=== PATIENT | female | born 1965 | race African-American/Black ===

== ENCOUNTER 2019-05-08 18:01 | Emergency (ER) | payer OTHER ==
[~2019-05-08] VITALS: Ht 165.1 cm; Wt 76.2 kg
[2019-05-08] MEDS ORDERED: SIMVASTATIN20 MG ORAL (18:21)
[2019-05-08] MEDS ORDERED: HYDROCHLOROTHIA50 MG ORAL (18:21)
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
[2019-05-08 18:36] VITALS: BP 156/92
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
[2019-05-08] MEDS ORDERED: ROBAXIN500 MG PO (18:45)
[2019-05-08] MEDS ORDERED: NAPROXEN500 M2 ORAL (18:45)
--- NOTE | 2019-05-08 18:50 | NUR ---
ED Nurse Note: PT LAYING PEACEFULLY IN BED IN NAD. AOX4. PRESCIRPTIONS AND DISCHARGE PAPERWORK EXPLAINED TO PT. PT VERBALIZES UNDERSTANDING AND ALL QUESTIONS ANSWERED. PRESCRIPTIONS AND DISCHARGE PAPERWORK GIVEN TO PT AND ID WRISTBAND REMOVED. PT WALKED OUT OF ER WITH STEADY GAIT AND ALL BELONGINGS.
[2019-05-08 18:51] VITALS: BP 152/88
== END 2019-05-08 18:51 | disposition home or self-care (01) ==
LOC: EMR 18:31
DX: S16.1XXA Strain of muscle, fascia and tendon at neck level, initial encounter (principal); S39.012A Strain of muscle, fascia and tendon of lower back, initial encounter; V43.52XA Car driver injured in collision with other type car in traffic accident, initial encounter; Y92.410 Unspecified street and highway as the place of occurrence of the external cause; Z88.0 Allergy status to penicillin; I10 Essential (primary) hypertension
CPT/HCPCS: 99282